=== PATIENT | female | born 2000 | race Caucasian/White ===

== ENCOUNTER 2023-05-20 12:25 | Emergency (ER) | payer MEDICAID, OTHER ==
[2023-05-20] MEDS: Orphenadrine 60 MG/2 ML Inj IM ONE (13:10)
[2023-05-20] MEDS: Ketorolac 60 MG/2 ML SDV IM ONE (13:10)
== END 2023-05-20 13:48 | disposition home or self-care (01) ==
LOC: JD.ED 12:25
DX: M54.16 Radiculopathy, lumbar region (principal); M54.42 Lumbago with sciatica, left side; Z91.048 Other nonmedicinal substance allergy status; Z91.013 Allergy to seafood; Z91.09 Other allergy status, other than to drugs and biological substances; Z79.899 Other long term (current) drug therapy
CPT/HCPCS: 96372; 99283; J1885; J2360